=== PATIENT | female | born 2000 | race Two or more races ===

== ENCOUNTER 2019-02-09 17:49 | Emergency (ER) | payer MEDICAID ==
[~2019-02-09] VITALS: Ht 167.6 cm; Wt 65.0 kg
[2019-02-09] MEDS ORDERED: LORAZEPAM 1MG TABLET PO ONE (20:15)
[2019-02-09 21:49] VITALS: BP 119/75
== END 2019-02-09 21:52 | disposition home or self-care (01) ==
LOC: ER 17:49
DX: F41.0 Panic disorder [episodic paroxysmal anxiety] (principal); F10.10 Alcohol abuse, uncomplicated; Y90.9 Presence of alcohol in blood, level not specified
CPT/HCPCS: 93005; 99283

== ENCOUNTER 2019-08-31 17:16 | Emergency (ER) | payer MEDICAID ==
[~2019-08-31] VITALS: Ht 170.2 cm; Wt 80.0 kg
[2019-08-31] MEDS ORDERED: LORAZEPAM 2MG/ML CPJ IV STA (18:30)
[2019-08-31] MEDS ORDERED: SODIUM CHLORIDE 0.9% 1,000 ML IV ONE (18:30)
[2019-08-31] MEDS ORDERED: KETOROLAC 15MG/ML VIAL IV ONE (18:30)
[2019-08-31] MEDS ORDERED: LORAZEPAM 2MG/ML CPJ IV NR (18:45)
[2019-08-31] MEDS ORDERED: KETOROLAC 15MG/ML VIAL IV NR (18:45)
[2019-08-31 19:09] LABS: BASOPHILS % 0.7 % (0.0-2.0); EOSINOPHILS % 0.1 % (0.0-5.0); HEMATOCRIT. 39.1 % (36.0-48.0); HEMOGLOBIN. 12.8 g/dL (12.0-16.0); LYMPHOCYTES % 16.8 % (20.0-50.0); MEAN CORPUSCULAR HEMOGLOBIN 25.4 pg (28.0-32.0); MEAN CORPUSCULAR VOLUME 77.4 fL (81.0-99.0); MEAN PLATELET VOLUME 8.7 fl (7.4-10.4); MONOCYTES % 7.3 % (2.0-8.0); NEUTROPHILS % 75.1 % (40.0-76.0); PLATELET 395 x1000/uL (130-400); RED BLOOD CELL COUNT 5.04 mill/uL (4.2-5.4); RED CELL DISTRIBUTION WIDTH 17.6 % (11.6-14.6)
[2019-08-31 19:14] LABS: CHLORIDE 102 mEq/L (98-107)
[2019-08-31 19:18] LABS: HCG SCREEN NEGATIVE
[2019-08-31 19:20] LABS: ETHANOL BLOOD < 10 mg/dL
[2019-08-31 21:47] VITALS: BP 115/77
== END 2019-08-31 21:49 | disposition home or self-care (01) ==
LOC: ER 17:16
DX: T43.641A Poisoning by ecstasy, accidental (unintentional), initial encounter (principal); R00.0 Tachycardia, unspecified; F15.129 Other stimulant abuse with intoxication, unspecified; Y92.89 Other specified places as the place of occurrence of the external cause
CPT/HCPCS: 36415; 80053; 80320; 84703; 85025; 93005; 96374; 99284; J1885; J2060; J7030; G0480

== ENCOUNTER 2021-12-13 17:40 | Emergency (ER) | payer MEDICAID ==
[~2021-12-13] VITALS: Ht 175.3 cm; Wt 101.0 kg
[2021-12-13] MEDS ORDERED: ACETAMINOPHEN 325MG TABLET PO ONE (19:00)
[2021-12-13] MEDS ORDERED: ACET-2708 MT (19:35)
[2021-12-13 19:53] VITALS: BP 120/65
== END 2021-12-13 19:55 | disposition home or self-care (01) ==
LOC: ER 17:47
DX: S60.042A Contusion of left ring finger without damage to nail, initial encounter (principal); R03.0 Elevated blood-pressure reading, without diagnosis of hypertension; X58.XXXA Exposure to other specified factors, initial encounter; Y93.89 Activity, other specified; Y92.89 Other specified places as the place of occurrence of the external cause
CPT/HCPCS: 29130; 73140; 81025; 99283